=== PATIENT | male | born 1960 | race Caucasian/White ===

== ENCOUNTER 2018-09-13 20:40 | Inpatient (IN) | payer BC, OTHER ==
[~2018-09-13] VITALS: Ht 182.9 cm; Wt 95.3 kg
--- NOTE | 2018-09-13 20:47 | NUR ---
BIB AMBULANCE REPORTED" POSTED SI ON MEDICA" A, OX4. DENIED SI OR ANY PLAN CURRENTLY OTR IN THE PAST. GOWNED UP. ALL THE BELONGINGS KEPT IN SAFE. ON SUICIDAL PRECAUTION.WILL CONT TO MONITOR,
--- NOTE | 2018-09-13 20:47 | NUR ---
PT WAS PLACED ON A 5150 BY [employer] FOR DTS
--- NOTE | 2018-09-13 20:47 | NUR ---
NO MARCUS MORAN IS AT THE BEDSIDE.
[2018-09-13 21:16] LABS: APPEARANCE,URINE Clear (CLEAR); BILIRUBIN,URINE Negative (NEGATIVE); BLOOD, URINE Negative Ery/uL (NEGATIVE); COLOR,URINE Yellow (YELLOW); KETONES,URINE 15 (NEGATIVE); LEUKOCYTE ESTERASE ,URINE Negative (NEGATIVE); NITRITE, URINE Negative (NEGATIVE); PH,URINE 5.5 (5.0-8.0); PROTEIN,URINE 100 mg/dl (NEGATIVE); UGLUCOSE Negative (NEGATIVE); UROBILINOGEN,URINE 0.2 EU/dL (0.2)
--- NOTE | 2018-09-13 21:21 | NUR ---
RESTING IN BED COMFORTABLY. WITH A 1:1 SITTER FOR SUICIDAL PRECAUTION. PT WAS ALREADY PLACED ON 5150 HOLD BY [employer] OFFICERS. WILL CONT TO MONITOR
[2018-09-13 21:27] LABS: BASOPHILS # (AUTO) 0.1 /CMM (0.0-0.2); BASOPHILS % (AUTO) 0.9 % (0.0-2.0); HEMATOCRIT 42 % (39-51); HEMOGLOBIN 14.3 g/dL (13.5-17.5); LYMPHOCYTES # (AUTO) 3.3 /CMM (0.8-4.8); LYMPHOCYTES % (AUTO) 29.3 % (20.0-44.0); MEAN CORPUSCULAR HGB CONC 34 g/dl (31.0-36.0); MEAN CORPUSCULAR VOLUME 108 fL (80-96); MONOCYTES # (AUTO) 0.9 /CMM (0.1-1.30); MONOCYTES % (AUTO) 8.1 % (2.0-12.0); NEUTROPHILS # (AUTO) 6.3 /CMM (1.8-8.9); NEUTROPHILS % (AUTO) 56.7 % (43.0-81.0); PLATELET COUNT (AUTO) 322 /CMM (150-450); WHITE BLOOD COUNT (AUTO) 11.1 K/uL (4.3-11.0)
[2018-09-13 21:44] LABS: ALANINE AMINOTRANSFERASE 36 U/L (12-78); ALBUMIN 4.1 g/dL (3.4-5.0); ALCOHOL, BLOOD 202 mg/dL (0-0); ALKALINE PHOSPHATASE 51 U/L (46-116); ASPARTATE AMINOTRANSFERASE 32 U/L (15-37); BILIRUBIN,DIRECT 0.1 mg/dL (0.0-0.2); BILIRUBIN,TOTAL 0.4 mg/dL (0.2-1.0); CARBON DIOXIDE 22 mmol/L (21-32); CHLORIDE 95 mmol/L (98-107); CREATININE 1.1 mg/dL (0.6-1.3); GLUCOSE 110 mg/dL (74-106); SALICYLATE 4.2 mg/dL (2.8-20.0); SODIUM SERUM 138 mmol/L (136-145); TOTAL PROTEIN, SERUM 8.3 g/dL (6.4-8.2); UREA NITROGEN, BLOOD 8 mg/dL (7-18)
[2018-09-13 21:45] LABS: ACETAMINOPHEN < 2 ug/ml (10-30)
[2018-09-13 22:47] LABS: EOSINOPHILS % (MANUAL) 7 % (0-4); LYMPHOCYTES % (MANUAL) 23 % (16-48); MONOCYTES % (MANUAL) 9 % (0-11.0); NEUTROPHILS % (MANUAL) 61 (42-76)
--- NOTE | 2018-09-13 22:57 | NUR ---
REPORT GIVEN TO TOMMY RN
[2018-09-13] MEDS ORDERED: ONDANSETRON HCL/PF 4 MG/2 ML VIAL IVP PRN (23:00)
[2018-09-13] MEDS ORDERED: MAG HYDROX/AL HYDROX/SIMETH 30 ML UDC PO PRN ×2 (23:00→23:30)
[2018-09-13] MEDS ORDERED: ZOLPIDEM TARTRATE 5 MG TABLET PO PRN (23:00)
[2018-09-13] MEDS ORDERED: ACETAMINOPHEN 325 MG TABLET PO PRN ×2 (23:00→23:30)
[2018-09-13] MEDS ORDERED: HYDROCODONE/APAP 5/325MG 1 EACH TABLET PO PRN (23:00)
[2018-09-13] MEDS ORDERED: MAGNESIUM HYDROXIDE 30 ML UDC PO PRN ×2 (23:00→23:30)
--- NOTE | 2018-09-13 23:05 | NUR ---
PT IS GOING TO [facility]IA .
[2018-09-13] MEDS ORDERED: SITA1TAB6 PO (23:12)
[2018-09-13] MEDS ORDERED: CANA300T PO (23:12)
[2018-09-13] MEDS ORDERED: LEVO100T PO (23:12)
[2018-09-13] MEDS ORDERED: CLONIDINE HCL 0.1 MG TABLET PO PRN (23:30)
[2018-09-13] MEDS ORDERED: DEXTROSE 50%-WATER 50 ML DISP.SYRIN IV PRN (23:30)
[2018-09-13] MEDS ORDERED: INSULIN REGULAR, HUMAN 100 UNIT/ML 3 ML VIAL SQ PRN (23:30)
[2018-09-14] MEDS ORDERED: LORAZEPAM 1 MG TABLET PO PRN (00:30)
--- NOTE | 2018-09-14 00:41 | NUR ---
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 Patient was contraband and skin check done.Reviewed Patient's Rights and he verbalized understanding .Patient was also informed and given a booklet about a guide to prescription medications for mental health.Patient was also oriented to unit rules and policies.Patient retired to bed after admission assessment.MD's notified of the admission.Will continue to monitor q15 min rounds for safety.
[2018-09-14] MEDS: ALBUTEROL FS 2.5 MG/0.5 ML VIAL.NEB NEB PRN ×2 (05:41→19:24)
--- NOTE | 2018-09-14 06:06 | NUR ---
patient wake up with anxiety and having difficulty of breathing ativan 0.5 mg administered to the patient as m.d order and breathing treatment is giving to patient for as ordered .
[2018-09-14 07:14] LABS: CREATININE 0.9 mg/dL (0.6-1.3)
[2018-09-14 07:19] LABS: MAGNESIUM 1.4 mg/dL (1.8-2.4); PHOSPHORUS 3.8 mg/dL (2.5-4.9)
[2018-09-14 07:31] LABS: THYROID STIMULATING HORMONE 19.984 uIU/mL (0.358-3.74)
[2018-09-14 08:00] VITALS: BP 154/94
--- NOTE | 2018-09-14 09:00 | NUR ---
rn notes bs-159 mg/dl patient refused coverage.
[2018-09-14] MEDS: LEVOTHYROXINE SODIUM 100 MCG TABLET PO SCH (09:40)
[2018-09-14] MEDS: FOLIC ACID 1 MG TABLET PO SCH (09:40)
[2018-09-14] MEDS: THIAMINE HCL 100 MG TABLET PO SCH (09:40)
[2018-09-14] MEDS: CHLORDIAZEPOXIDE HCL 25 MG CAPSULE PO SCH ×2 (09:40→16:40)
[2018-09-14] MEDS: MULTIPLE VIT (LYCOPENE/FA/MV,CA,IRON,MIN/LUT)1 TAB PO SCH (09:41)
[2018-09-14] MEDS: BLOOD SUGAR DIAGNOSTIC 1 EACH STRIP IN SCH ×4 (09:43→22:11)
[2018-09-14] MEDS: PANTOPRAZOLE 40 MG TABLET.DR PO SCH (09:45)
[2018-09-14] MEDS: MAGNESIUM OXIDE 400 MG TABLET PO SCH ×2 (11:28→16:40)
--- NOTE | 2018-09-14 11:53 | NUR ---
SW met with pts friend Taylor [phone] on this present day and discussed pts treatment plan and length of stay.
--- NOTE | 2018-09-14 12:28 | NUR ---
INITIAL DISCHARGE PLAN: Patient wishes to be discharged back home [address] [place] [address] . Pts friend Taylor [phone] will transport pt home once stable for discharge. SW will help form a safe and proper discharge in collaboration with .
--- NOTE | 2018-09-14 13:00 | NUR ---
RN NOTES BS-203 MG/DL REFUSED COVERAGE, PER PATIENT INSULIN NOT WORKING FOR HIM, BETTER HE TAKE MEDICATION PO.
[2018-09-14] MEDS ORDERED: ALBUTEROL SULFATE 8 GM HFA.AER.AD IH PRN (14:30)
--- NOTE | 2018-09-14 15:58 | NUR ---
Group note: Pt attended a group session on 09/14/18 at 1:30PM discussing the topic of their substance abuse/abusing prescription medication as well as the importance of being compliant with their medications. S: Pt stated, I made a mistake. I am broke and cannot afford alcohol but my friend bought me a bottle of vodka. I drank too much and I wrote something on facebook that caused me to get admitted here. It was so stupid and I regret it. O: Pt was present during the group session and was attentive and cooperative. Pt appeared to be in a euthymic mood and presented with a flat affect. Pt maintained appropriate eye contact throughout the group. A: Pt expressed his understanding that he made a mistake and he drank too much. Pt gained the understanding that he needs to be able to be aware of what his limits are. P: Pt will continue milieu treatment and medication stabilization.
[2018-09-14 16:00] VITALS: BP 137/95
[2018-09-14] MEDS: FLUTICASONE PROPIONATE 16 GM BOTTLE NS SCH (16:39)
[2018-09-14] MEDS: SERTRALINE HCL 25 MG TABLET PO SCH (16:40)
[2018-09-14] MEDS ORDERED: MISCELLANEOUS MED 1 EA EA XX SCH (17:00)
[2018-09-14] MEDS: METFORMIN 500 MG TABLET PO SCH (17:15)
--- NOTE | 2018-09-14 18:00 | NUR ---
RN NOTES BS-267 MG/DL, PATIENT REFUSED COVERAGE, BUT TOOK METFORMIN 500 MG PO PRESCRIBED.
--- NOTE | 2018-09-14 19:30 | NUR ---
GPS RN NOTE, RECEIVED PATIENT AWAKE AND IN ROOM NO S/S OR COMPLAINTS OF PAIN AT THIS TIME. PATIENT IS DISPLAYING NO S/S OF APPARENT DISTRESS AT THIS TIME. PATIENT BREATHING IS UNLABORED WITH EQUAL RISE AND FALL OF THE CHEST. PATIENT IS ALERT AND ORIENTED X 3 ON ROOM AIR WITH A SPO2 OF 98%. PATIENT IS BRIGHT, PARANOID, DISORGANIZED, ANXIOUS, COOPERATIVE, AND NEEDS REORIENTATION. PATIENT DENIES SUICIDE AND HOMICIDAL IDEATIONS AT THIS TIME. PATIENT ASSISTED WITH TURNING AND REPOSITIONING Q2HR AND PRN FOR COMFORT AND CIRCULATION. PATIENT HAS NO NEEDS AT THIS TIME. PATIENT EDUCATED ON THE USE OF THE CALL BRODERICK. PATIENT BED SIDE RAILS ARE UP X 2 FOR SAFETY, BED IS LOCKED AND LOW. WILL CONTINUE TO MONITOR AND MAINTAIN SAFETY Q15 MIN WITH THE HELP OF STAFF.
[2018-09-14 20:15] VITALS: BP 152/90
--- NOTE | 2018-09-14 22:11 | NUR ---
GPS RN NOTE, PERFORMED ACCU CHECK ON PATIENT WITH A BLOOD SUGAR RESULT OF 115. GAVE NO INSULIN PER SLIDING SCALE. WILL CONTINUE TO MONITOR THIS PATIENT.
[2018-09-14] MEDS: TEMAZEPAM 7.5 MG CAPSULE PO PRN (22:15)
--- NOTE | 2018-09-14 22:15 | NUR ---
GPS RN NOTE, PATIENT HAS A COMPLAINT OF NOT BEING ABLE TO SLEEP AND IS REQUESTING RESTORIL AT THIS TIME. PATIENT VITAL SIGNS ARE STABLE. GAVE RESTORIL 7.5MG PO HS ORDERED. WILL REASSESS FOR INSOMNIA AND I WILL CONTINUE TO MONITOR THIS PATIENT.
--- NOTE | 2018-09-15 07:30 | NUR ---
RN GPS NOTES BS CHECKED 147, PT REFUSED INSULIN.
[2018-09-15] MEDS: BLOOD SUGAR DIAGNOSTIC 1 EACH STRIP IN SCH ×4 (07:45→22:03)
[2018-09-15 08:00] VITALS: BP 145/95
[2018-09-15] MEDS: PANTOPRAZOLE 40 MG TABLET.DR PO SCH (08:29)
[2018-09-15] MEDS: MULTIPLE VIT (LYCOPENE/FA/MV,CA,IRON,MIN/LUT)1 TAB PO SCH (08:29)
[2018-09-15] MEDS: LEVOTHYROXINE SODIUM 100 MCG TABLET PO SCH (08:29)
[2018-09-15] MEDS: MAGNESIUM OXIDE 400 MG TABLET PO SCH ×2 (08:30→16:39)
[2018-09-15] MEDS: THIAMINE HCL 100 MG TABLET PO SCH (08:30)
[2018-09-15] MEDS: FOLIC ACID 1 MG TABLET PO SCH (08:30)
[2018-09-15] MEDS: CHLORDIAZEPOXIDE HCL 25 MG CAPSULE PO SCH ×2 (08:30→16:39)
[2018-09-15] MEDS: LINAGLIPTIN 5 MG TABLET PO SCH (08:30)
[2018-09-15] MEDS: FLUTICASONE PROPIONATE 16 GM BOTTLE NS SCH (08:46)
[2018-09-15] MEDS: METFORMIN 500 MG TABLET PO SCH (08:46)
[2018-09-15] MEDS ORDERED: METFORMIN 500 MG TABLET PO SCH (09:00)
[2018-09-15] MEDS ORDERED: INVOKANA 300 MG PO SCH (09:00)
--- NOTE | 2018-09-15 14:05 | NUR ---
AMBER contacted pts friend Taylor [phone] to coordinate pts discharge for Wednesday09/16/18 at 11:00am.
--- NOTE | 2018-09-15 15:55 | NUR ---
GROUP NOTE: Pt attended a group session on 09/15/18 at 2:00PM discussing the problem of discharge planning. S: "I need to start working once I get discharged, I have some friends who will be helping me out." O: Pt appeared hopeful of his situation pt maintained appropriate eye contact and also contributed to the group discussion. Pts mood appeared euthymic with congruent affect. A: Pt gained insight into his triggers that contributed to his hospitalization pt also gained awareness of how to positively cope with his financial struggles. P: pt will continue milieu treatment and medication compliance.
[2018-09-15 16:00] VITALS: BP 160/89
[2018-09-15] MEDS: SERTRALINE HCL 25 MG TABLET PO SCH (16:39)
--- NOTE | 2018-09-15 18:15 | NUR ---
RN GPS NOTES PT AWAKE, ALERT AND ORIENTED, NO COMPLAINT AT THIS TIME, NO BEHAVIOR PROBLEM NOTED, TOLERATES CURRENT DIET, BS CHECKED, REFUSED INSULIN ADMINISTRATION, EDUCATION PROVIDED, VERBALIZED UNDERSTANDING.
[2018-09-15 20:00] VITALS: BP 132/83
--- NOTE | 2018-09-15 22:00 | NUR ---
RN NOTES BLOOD SUGAR-194- REFUSED INSULIN COVERAGE
[2018-09-15] MEDS: TEMAZEPAM 7.5 MG CAPSULE PO PRN (22:03)
[2018-09-16] MEDS: MULTIPLE VIT (LYCOPENE/FA/MV,CA,IRON,MIN/LUT)1 TAB PO SCH (08:09)
[2018-09-16] MEDS: THIAMINE HCL 100 MG TABLET PO SCH (08:09)
[2018-09-16] MEDS: LINAGLIPTIN 5 MG TABLET PO SCH (08:09)
[2018-09-16] MEDS: MAGNESIUM OXIDE 400 MG TABLET PO SCH (08:09)
[2018-09-16] MEDS: PANTOPRAZOLE 40 MG TABLET.DR PO SCH (08:09)
[2018-09-16] MEDS: LEVOTHYROXINE SODIUM 100 MCG TABLET PO SCH (08:09)
[2018-09-16] MEDS: FLUTICASONE PROPIONATE 16 GM BOTTLE NS SCH (08:10)
[2018-09-16] MEDS: CHLORDIAZEPOXIDE HCL 25 MG CAPSULE PO SCH (08:10)
[2018-09-16] MEDS: METFORMIN 500 MG TABLET PO SCH (08:10)
[2018-09-16] MEDS: FOLIC ACID 1 MG TABLET PO SCH (08:10)
[2018-09-16] MEDS: BLOOD SUGAR DIAGNOSTIC 1 EACH STRIP IN SCH (08:18)
--- NOTE | 2018-09-16 08:21 | NUR ---
LAYNE NOTE: AMBER received a voicemail from Randa TILLMAN case packer with [employer] [phone] stating pts last covered day is on this Present day. AMBER called back and informed her pt will be discharged at 11am on this present day. Addendum: 09/16/18 at 1031 by ENDY CLARK AMBER provided case packer with discharge information.
--- NOTE | 2018-09-16 08:22 | NUR ---
PT ALERT ORIENTED X 4 DISCHARGED BY MD SALES EXPERT AT 1100. PT BLOOD SUGAR 276 REFUSED SUB Q INSULIN
[2018-09-16 08:30] VITALS: BP 145/91
--- NOTE | 2018-09-16 09:00 | NUR ---
DR. MADDEN GAVE AN ORDER TO D/C HOLD AND D/C HOME AND TO FOLLOW UP WITH PSYCH AND MEDICAL DOCTORS.
--- NOTE | 2018-09-16 09:39 | NUR ---
PATIENT HAS NO COMPLAINTS PATIENT VITAL SIGNS ARE STABLE. GAVE ALL MEDICATIONS ORDERED. WILL CONTINUE TO MONITOR THIS PATIENT. PT DISCHARGED PENDING MEDICAL MEDICATION REVIEW AND PRESCRIPTION(S).
[2018-09-16 10:04] VITALS: BP 145/91
--- NOTE | 2018-09-16 10:26 | NUR ---
DISCHARGE NOTE: Pt will be discharged via private vehicle at 11:00am to his [place] [address] [place] [address]. Pts friend Taylor [phone] will pick pt up and transport home. Pts mood is euthymic but anxious with congruent affect. SW provided pt with a referral to [facility] [address] [facility] [address] and encouraged pt to go on Wednesday September 19, 2018 for an intake appointment at 9:00am. SW also provided pt with a referral to [facility] Address: [address] [place] [address] . Patient was provided referrals to address his alcohol use. Patient was referred to the [facility] [address] [place] [address] / and was encouraged to present at 9am on Wednesday September 19, 2018 . Additional resources included [facility] [address] [place] [address] and [facility] [address] [place] [address] . For smoking cessation, patient was referred to the [employer] and [employer] [id number]. Pt will also participate in a telephone meeting with [employer] [phone] on Monday September 17, 2018 at 8:00am. The multidisciplinary exitcare form was done, printed, signed, and given to the patient.
--- NOTE | 2018-09-16 10:59 | NUR ---
DR. ARIZA MADE AWARE OF THE DISCHARGE AND PROVIDED A PRESCRIPTIONS.
--- NOTE | 2018-09-16 11:06 | NUR ---
PT WANTS TO LEAVE DISCHARGE PACKAGE COMPLETE INCLUDING MEDICATION PRESCRIPTION CALLED EMELINA WHO WILL PICK PT UP PER SW YESTERDAY AND RECCONFIRNING TODAY WELL WHEN CALLED NOW EMELINA STATES SHE IS ON HER WAY. PT DENIES SUICIDAL IDEATIONS Addendum: 09/16/18 at 1356 by MAURICE ZAMORA RN PATIENT DENIES HOMICIDAL IDEATION WELL AND STABLE FOR DISCHARGE
--- NOTE | 2018-09-16 11:24 | NUR ---
PT LEFT WITH VIANEY TARANGO NOW ALL BELONGINGS TAKEN BY PATIENT PT INSTRUCTED TO FOLLOW UP WITH PSYCHIATRIC COUNSELLING
== END 2018-09-16 11:23 | disposition home or self-care (01) | DRG 885 ==
LOC: ER 20:44 → GPS 22:42
PROVIDERS: ADMIT Psychiatry & Neurology Psychosomatic Medicine; ATTEND Nurse Practitioner Acute Care
DX: F29 Unspecified psychosis not due to a substance or known physiological condition (principal); F01.50 Vascular dementia, unspecified severity, without behavioral disturbance, psychotic disturbance, mood disturbance, and anxiety; E11.65 Type 2 diabetes mellitus with hyperglycemia; F33.2 Major depressive disorder, recurrent severe without psychotic features; R45.851 Suicidal ideations; E03.9 Hypothyroidism, unspecified; I10 Essential (primary) hypertension; D72.829 Elevated white blood cell count, unspecified; Z91.14 Patient's other noncompliance with medication regimen; E83.42 Hypomagnesemia; F10.129 Alcohol abuse with intoxication, unspecified; Y90.7 Blood alcohol level of 200-239 mg/100 ml; F41.1 Generalized anxiety disorder
CPT/HCPCS: 36415; 71045-TC; 80048-TC; 80061-TC; 80076-TC; 80305; 81000-TC; 82565-TC; 82962-TC; 83735-TC; 84100-TC; 84443-TC; 85025-TC; 87081-TC; G0480; J1815; J2405

== ENCOUNTER 2019-07-19 11:51 | Emergency (ER) | payer SELFPAY ==
[~2019-07-19] VITALS: Ht 177.8 cm; Wt 74.4 kg
[~2019-07-19 11:51] MED LIST: CANA300T PO; LEVO100T PO; SITA1TAB6 PO
--- NOTE | 2019-07-19 12:00 | NUR ---
BIBRA86 FRM A HOTEL, SUICIDAL X2 WEEKS, +ETOH. BFA SELF INFLICT LAC NOTED BG 386.; PT TO BED 12, SI PRECAUTIONS STARTED, SECURITY CALLED FOR WANDING, BELONGING KEPT IN LOCKER FOR SAFETY, PT -SOB, -CP, VSS, PENDING ER PROVIDER ALLEN
[2019-07-19 12:21] LABS: BASOPHILS # (AUTO) 0.1 /CMM (0.0-0.2); BASOPHILS % (AUTO) 0.3 % (0.0-2.0); EOSINOPHILS % (AUTO) 0.2 % (0.0-6.0); HEMATOCRIT 43 % (39-51); LYMPHOCYTES # (AUTO) 1.7 /CMM (0.8-4.8); LYMPHOCYTES % (AUTO) 9.8 % (20.0-44.0); MEAN CORPUSCULAR HGB CONC 33 g/dl (31.0-36.0); MEAN CORPUSCULAR VOLUME 97 fL (80-96); MONOCYTES # (AUTO) 0.5 /CMM (0.1-1.30); MONOCYTES % (AUTO) 3.1 % (2.0-12.0); NEUTROPHILS % (AUTO) 86.6 % (43.0-81.0); PLATELET COUNT (AUTO) 513 /CMM (150-450); RED BLOOD CELL COUNT(AUTO) 4.39 MIL/uL (4.5-6.0); WHITE BLOOD COUNT (AUTO) 17.3 K/uL (4.3-11.0)
[2019-07-19] MEDS ORDERED: TDAP [DIPH/PERTUSSIS/TET] 0.5 ML VIAL IM ONE ×2 (12:30→22:40)
[2019-07-19 12:43] LABS: BILIRUBIN,DIRECT 0.1 mg/dL (0.0-0.2); BILIRUBIN,TOTAL 0.2 mg/dL (0.2-1.0); CALCIUM, SERUM 8.7 mg/dL (8.5-10.1); CREATININE 0.9 mg/dL (0.6-1.3); POTASSIUM 4.6 mmol/L (3.5-5.1); SALICYLATE 2.1 mg/dL (2.8-20.0); TOTAL PROTEIN, SERUM 7.8 g/dL (6.4-8.2)
[2019-07-19 13:13] LABS: APPEARANCE,URINE Clear (CLEAR); BILIRUBIN,URINE Negative (NEGATIVE); BLOOD, URINE Trace-intact Ery/uL (NEGATIVE); COLOR,URINE Yellow (YELLOW); KETONES,URINE Negative (NEGATIVE); LEUKOCYTE ESTERASE ,URINE Negative (NEGATIVE); NITRITE, URINE Negative (NEGATIVE); PROTEIN,URINE 30 mg/dl (NEGATIVE); UGLUCOSE 500 MG/DL mg/dL (NEGATIVE); UROBILINOGEN,URINE 0.2 EU/dL (0.2)
[2019-07-19 13:15] LABS: BACTERIA,URINE Rare /HPF (None Seen); SQUAMOUS EPITHELIAL CELL,UR Rare /HPF (None Seen); WBC,URINE 0-2 /HPF (0-3)
[2019-07-19] MEDS ORDERED: INSULIN REGULAR, HUMAN 100 UNIT/ML 10 ML VIAL SQ ONE (15:30)
[2019-07-19] MEDS ORDERED: INSULIN REGULAR, HUMAN 100 UNIT/ML 10 ML VIAL ONE (15:37)
--- NOTE | 2019-07-19 16:00 | NUR ---
Patient is resting comfortably in bed with eyes closed. Easily aroused. VSS
--- NOTE | 2019-07-19 17:00 | NUR ---
yahaira here, pt etoh level is too high to be eval'd, will call once ready.
--- NOTE | 2019-07-19 17:51 | NUR ---
emergency contact is Esthela (friend) [phone]
--- NOTE | 2019-07-19 22:22 | NUR ---
CALLED CRISIS CLINCIAN ANGELLA KELLER. 1 HOUR ETA
--- NOTE | 2019-07-19 22:30 | NUR ---
PT RQUESTED FOR FOOD, PROVIDED WITH SANDWICH AND DRINK. PT AWAKE, ALERT, VSS.
[2019-07-19] MEDS ORDERED: IBUPROFEN 600 MG TABLET PO ONE ×2 (22:40→23:00)
--- NOTE | 2019-07-20 00:24 | NUR ---
[facility] CALLED FOR [facility] TRANSFER REQUEST. PER ISAEL NO BEDS AVAILABLE.
--- NOTE | 2019-07-20 00:30 | NUR ---
SANGEETA BAZAN [facility] CALLED FOR HIGHER LEVEL OF CARE. FACESHEET AND INFO FAXED.
--- NOTE | 2019-07-20 00:54 | NUR ---
[facility] called back; just inquired when patient fell and pt's c/c for coming in
--- NOTE | 2019-07-20 01:20 | NUR ---
Call back from [facility] transfer center. Unable to accept pt.
--- NOTE | 2019-07-20 01:28 | NUR ---
[facility] transfer center called for higher level of care. No beds available.
--- NOTE | 2019-07-20 01:45 | NUR ---
[facility] called for higher level of care. No hat conditioner ophthalmology
--- NOTE | 2019-07-20 01:50 | NUR ---
[facility] called for higher level of care. No audio visual production specialist ophthalmology
--- NOTE | 2019-07-20 05:07 | NUR ---
Case represented to [facility] for higher level of care. No beds available.
--- NOTE | 2019-07-20 08:08 | NUR ---
PROVIDED W BREAKFAST TRAY. TOLERATING PO WELL.
--- NOTE | 2019-07-20 08:25 | NUR ---
JUVENTINO CALLED FROM THE TRANSFER CENTER. PT IS TO FOLLOW UP WITH DR. DODGE AT THE [facility] ON WEDNESDAY. PT IS TO HAVE AN OPTEMOLOGY APPOINTMENT PRIOR TO SEEING DOCTOR DODGE. PLEASE CALL [phone] FOR LOCATION OF [facility].
--- NOTE | 2019-07-20 08:45 | NUR ---
Social service consult requested by MD for resources. Per MD notes and chart review, pt is a 59-year-old homeless gentleman who presented to the emergency department yesterday via EMS with complaints of feeling suicidal. He is also currently intoxicated. He has a significant history for diabetes and hypertension. He states he fell yesterday, but did not seek medical attention. He denies being knocked out or blood thinner use. Pt was intoxicated with a BA of 225 at 1215 AM and is sober at this time. Pt was evaluated by [employer] b[facility] architect and per his report patient states he is not suicidal and has been cleared psychiatrically. REALTY SPECIALIST met with the pt bedside. Pt is alert and oriented x 4. Pt has contusions on his forehead and a black eye. Pt reports, he was evicted from his apartment one week ago. Patient has been in a hotel since then and came from a hotel to [facility]. Patient at this time stated he does not like being homeless but is not suicidal. now. REALTY SPECIALIST met with pt's friend who has been assisting the pt with money and getting him a hotel to stay in. REALTY SPECIALIST provided pt with active listening and supportive counseling. REALTY SPECIALIST encouraged pt to follow up with getting his Medi-jayna initiated. REALTY SPECIALIST also encouraged pt to go to [facility] Urgent care if needed and provided the address and phone number in the homeless packet. REALTY SPECIALIST gave pt homeless packet that includes [facility] [id number] [facility] program list, [facility] located at [address] [facility] ; [place] [place], [address] [place] [address], [place] ; [facility], [address] ; [facility] Homeless Resource Directory which includes food stamps, transitional housing, showers and hot meals etc; Mental Health clinics such as [facility] ; [facility] ; Health clinics;[facility] and Alcohol treatment centers such as [facility], ; [facility] Substance Abuse Hotline and [facility] . No other social service needs are requested at this time. CRN and RN have been updated with pt's discharge plan.
--- NOTE | 2019-07-20 10:54 | NUR ---
IV removed. Catheter intact and site benign. Pressure and 4x4 applied to site. No bleeding noted. Patient discharged to home in stable condition. Written and verbal after care instructions given. Patient verbalizes understanding of instruction.
[2019-07-20 10:55] VITALS: BP 138/81
== END 2019-07-20 10:56 | disposition home or self-care (01) ==
LOC: ER 11:59
DX: S02.832A Fracture of medial orbital wall, left side, initial encounter for closed fracture (principal); F10.129 Alcohol abuse with intoxication, unspecified; R45.851 Suicidal ideations; R51 Headache; E11.9 Type 2 diabetes mellitus without complications; I10 Essential (primary) hypertension; Y90.0 Blood alcohol level of less than 20 mg/100 ml; Z60.2 Problems related to living alone; Z79.899 Other long term (current) drug therapy; Z23 Encounter for immunization; Z59.0 Homelessness; X58.XXXA Exposure to other specified factors, initial encounter; Y93.89 Activity, other specified; Y92.89 Other specified places as the place of occurrence of the external cause; Y99.8 Other external cause status
CPT/HCPCS: 36415; 70450; 71045; 72125; 80048; 80076; 80305; 80307 ×2; 80329; 81001; 82962 ×2; 85025; 90471; 90715; 96372; 99285; G0480; J1815; 81000-TC

== ENCOUNTER 2019-07-20 13:47 | Emergency (ER) | payer MEDICAID ==
[~2019-07-20] VITALS: Ht 182.9 cm; Wt 74.8 kg
--- NOTE | 2019-07-20 13:59 | NUR ---
KENDAL RA FRM URGENT CARE C/O SUICIDAL IDEATION, pt awake, alert, pt to bed 12, pt on monitor, -sob, si precautions started, belongings kept in locker for safety, pending er provider evonne
[2019-07-20 14:14] LABS: BASOPHILS # (AUTO) 0.1 /CMM (0.0-0.2); BASOPHILS % (AUTO) 0.5 % (0.0-2.0); HEMATOCRIT 38 % (39-51); HEMOGLOBIN 12.7 g/dL (13.5-17.5); LYMPHOCYTES # (AUTO) 1.5 /CMM (0.8-4.8); LYMPHOCYTES % (AUTO) 8.8 % (20.0-44.0); MEAN CORPUSCULAR HGB CONC 34 g/dl (31.0-36.0); MEAN CORPUSCULAR VOLUME 94 fL (80-96); MONOCYTES # (AUTO) 1.3 /CMM (0.1-1.30); MONOCYTES % (AUTO) 7.8 % (2.0-12.0); NEUTROPHILS # (AUTO) 14.1 /CMM (1.8-8.9); NEUTROPHILS % (AUTO) 82.9 % (43.0-81.0); PLATELET COUNT (AUTO) 555 /CMM (150-450); WHITE BLOOD COUNT (AUTO) 17.1 K/uL (4.3-11.0)
[2019-07-20 14:33] LABS: CALCIUM, SERUM 8.8 mg/dL (8.5-10.1); CARBON DIOXIDE 29 mmol/L (21-32); CHLORIDE 92 mmol/L (98-107); GLUCOSE 288 mg/dL (74-106); POTASSIUM 4.4 mmol/L (3.5-5.1); SODIUM SERUM 130 mmol/L (136-145); UREA NITROGEN, BLOOD 13 mg/dL (7-18)
[2019-07-20 14:39] LABS: ALANINE AMINOTRANSFERASE 36 U/L (12-78); ALCOHOL, BLOOD < 3 mg/dL (0-0); ALKALINE PHOSPHATASE 84 U/L (46-116); ASPARTATE AMINOTRANSFERASE 20 U/L (15-37); BILIRUBIN,DIRECT 0.1 mg/dL (0.0-0.2); BILIRUBIN,TOTAL 0.4 mg/dL (0.2-1.0); TOTAL PROTEIN, SERUM 7.7 g/dL (6.4-8.2)
[2019-07-20 14:40] LABS: ACETAMINOPHEN 0 ug/ml (10-30); SALICYLATE 1.5 mg/dL (2.8-20.0)
[2019-07-20] MEDS ORDERED: IV NS 0.9% 1,000 ML BAG IV ONE (15:00)
--- NOTE | 2019-07-20 15:00 | NUR ---
pt in bed, vss, nad noted.
[2019-07-20 15:26] LABS: APPEARANCE,URINE Clear (CLEAR); BILIRUBIN,URINE Negative (NEGATIVE); BLOOD, URINE Negative Ery/uL (NEGATIVE); COLOR,URINE Yellow (YELLOW); KETONES,URINE Negative (NEGATIVE); LEUKOCYTE ESTERASE ,URINE Negative (NEGATIVE); NITRITE, URINE Negative (NEGATIVE); PROTEIN,URINE 100 mg/dl (NEGATIVE); UGLUCOSE 100 MG/DL mg/dL (NEGATIVE)
[2019-07-20 15:28] LABS: BACTERIA,URINE None seen /HPF (None Seen); RBC,URINE 0-2 /HPF (0-2); SQUAMOUS EPITHELIAL CELL,UR Few /HPF (None Seen); WBC,URINE 0-2 /HPF (0-3)
--- NOTE | 2019-07-20 16:30 | NUR ---
per yahaira crisis team she spoke to consuelo major pt will be discharged from [facility]. pt was given resources, per report, pt will be going to [facility]. awating taxi voucher from nursing sup to be coordinated by consuelo.
[2019-07-20 17:00] VITALS: BP 139/90
--- NOTE | 2019-07-20 17:18 | NUR ---
TAXI VOUCHER PROVIDED BY NURSING SUP FOR PT GOING TO [facility] PROVIDED. VOUCHER #[id number]
--- NOTE | 2019-07-20 17:36 | NUR ---
pt in waiting room awaiting for taxi. pt given d/c paperwork, iv removed, -bleeding, homeless d/c given, pt given resources. ambulatory with steady gait, appears clincally sober. denies any s/i & h/i.
== END 2019-07-20 17:38 | disposition home or self-care (01) ==
LOC: ER 13:48
DX: S05.11XA Contusion of eyeball and orbital tissues, right eye, initial encounter (principal); F32.9 Major depressive disorder, single episode, unspecified; R45.851 Suicidal ideations; E11.65 Type 2 diabetes mellitus with hyperglycemia; F10.10 Alcohol abuse, uncomplicated; F17.200 Nicotine dependence, unspecified, uncomplicated; D72.829 Elevated white blood cell count, unspecified; E86.0 Dehydration; D64.9 Anemia, unspecified; D69.6 Thrombocytopenia, unspecified; Z59.0 Homelessness; F41.9 Anxiety disorder, unspecified; I10 Essential (primary) hypertension; Z60.2 Problems related to living alone; Z79.899 Other long term (current) drug therapy; W01.0XXA Fall on same level from slipping, tripping and stumbling without subsequent striking against object, initial encounter; Y93.89 Activity, other specified; Y92.89 Other specified places as the place of occurrence of the external cause; Y99.8 Other external cause status; Y90.0 Blood alcohol level of less than 20 mg/100 ml
CPT/HCPCS: 36415; 80048; 80076; 80305; 80307; 80329; 81001; 82962; 85025; 96360; 99283; 99406; G0480; J7030; 81000-TC